=== PATIENT | male | born 1975 | race Caucasian/White ===

== ENCOUNTER 2017-03-19 05:36 | Emergency (ER) | payer MEDICAID ==
[2014-11-03 18:49] VITALS: BMI 33.0
[~2017-03-19 05:36] MED LIST: CIPRO500 MG PO; TYLENOL W/CODEI1 TAB PO
== END 2017-03-19 07:23 | disposition home or self-care (01) ==
LOC: D.ER 05:36
DX: S61.012A Laceration without foreign body of left thumb without damage to nail, initial encounter (principal); W26.9XXA Contact with unspecified sharp object(s), initial encounter; Y93.89 Activity, other specified; Y92.89 Other specified places as the place of occurrence of the external cause; F17.200 Nicotine dependence, unspecified, uncomplicated